=== PATIENT | female | born 1955 | race Caucasian/White ===

== ENCOUNTER → 2017-09-04 | Outpatient (CLI) | payer BC ==
--- NOTE | 2017-09-04 10:04 | REPMRS ---
Patient History The patient states she had a clinical breast exam in 08/2017. Patient has history of other cancer at age 49. Family history of breast cancer in paternal grandmother at age 50 or over, breast cancer in maternal cousin at age 58, and prostate cancer in brother at age 50 or over. Digital Woman Screen Mammo: September 04, 2017 - Exam #: [id number] Bilateral CC and MLO view(s) were taken. Technologist: Diane Rachel, Technologist Prior study comparison: September 05, 2016, digital woman screen mammo performed at [facility]. August 26, 2015, digital woman screen mammo performed at [facility]. FINDINGS: The breast tissue is heterogeneously dense. This may lower the sensitivity of mammography. There has been no change in the appearance of the mammogram from the prior studies. There is a moderate amount of residual fibroglandular tissue which is fairly symmetric. There is no interval development of dominant mass, areas of architectural distortion, or clustered microcalcification typical of malignancy. ASSESSMENT: BI-RADS/ACR category 1 mammogram. Negative. Recommendation Routine screening mammogram in 1 year (for women over age 40). This mammogram was interpreted with the aid of an FDA-approved computer-aided dectection system. Electronically Signed By: Sohail Whiting MD 09/04/17 5920
== END ==
LOC: M WHC 08:07
PROVIDERS: ATTEND Nurse Practitioner Women's Health
DX: Z12.31 Encounter for screening mammogram for malignant neoplasm of breast (principal)

== ENCOUNTER → 2018-03-16 | Outpatient (CLI) | payer BC ==
[2018-03-16 08:36] LABS: HEMATOCRIT 34.9 % (36.0-47.0); HEMOGLOBIN 11.8 g/dl (12.0-15.5); MEAN CORPUSCULAR HEMOGLOBIN 30.8 pg (27.0-33.0); MEAN CORPUSCULAR HGB CONC 33.8 g/dl (32.0-36.5); MEAN CORPUSCULAR VOLUME 91.1 fl (80.0-96.0); PLATELET COUNT, AUTOMATED 250 10^3/uL (150-450); RED BLOOD COUNT 3.83 10^6/uL (4.00-5.40); RED CELL DISTRIBUTION WIDTH 12.3 % (11.5-14.5); WHITE BLOOD COUNT 4.4 10^3/uL (4.0-10.0)
[2018-03-16 09:01] LABS: ALBUMIN/GLOBULIN RATIO 1.18 (1.00-1.93); ALKALINE PHOSPHATASE 89 U/L (45-117); ALT/SGPT 30 U/L (12-78); ANION GAP 5 MEQ/L (8-16); AST/SGOT 19 U/L (7-37); BILIRUBIN,TOTAL 0.5 MG/DL (0.2-1.0); BLOOD UREA NITROGEN 16 MG/DL (7-18); CALCIUM LEVEL 8.6 MG/DL (8.8-10.2); CARBON DIOXIDE LEVEL 28 MEQ/L (21-32); CHLORIDE LEVEL 112 MEQ/L (98-107); CHOLESTEROL LEVEL 205 MG/DL (<200); CHOLESTEROL RISK RATIO 2.971 (<5); CREATININE FOR GFR 0.66 MG/DL (0.55-1.30); GLOMERULAR FILTRATION RATE > 60.0 (>45); GLUCOSE, FASTING 85 MG/DL (70-100); HDL CHOLESTEROL 69 MG/DL (>40); IRON (FE) 91 UG/DL (50-170); LDL CHOLESTEROL 128.6 MG/DL (<100); NON-HDL-C 136 MG/DL; PERCENT SATURATION 27.1 % (13.2-45.0); POTASSIUM SERUM 3.8 MEQ/L (3.5-5.1); SODIUM LEVEL 145 MEQ/L (136-145); TOTAL IRON BINDING CAPACITY 336 UG/DL (250-450); TOTAL PROTEIN 7.4 GM/DL (6.4-8.2); TRIGLYCERIDES LEVEL 37 MG/DL (<150)
[2018-03-17 10:33] LABS: TOTAL 25(OH) VITAMIN D 22.2 NG/ML (30.0-100.0)
[2018-03-17 10:37] LABS: VITAMIN B12 LEVEL 663 PG/ML (247-911)
== END ==
LOC: M LAB 07:53
DX: D64.9 Anemia, unspecified (principal); R53.83 Other fatigue; E03.9 Hypothyroidism, unspecified
CPT/HCPCS: 83550

== ENCOUNTER → 2019-01-01 | Outpatient (REF) | payer BC | LOC: M SFHCLERA 09:59 | PROVIDERS: ATTEND Dermatology | DX: C44.712 Basal cell carcinoma of skin of right lower limb, including hip (principal) ==

== ENCOUNTER → 2019-04-14 | Outpatient (CLI) | payer BC ==
[2019-04-14 09:57] LABS: HEMATOCRIT 35.8 % (36.0-47.0); HEMOGLOBIN 11.8 g/dl (12.0-15.5); MEAN CORPUSCULAR HEMOGLOBIN 30.3 pg (27.0-33.0); MEAN CORPUSCULAR VOLUME 91.8 fl (80.0-96.0); PLATELET COUNT, AUTOMATED 260 10^3/uL (150-450); WHITE BLOOD COUNT 4.7 10^3/uL (4.0-10.0)
[2019-04-14 10:32] LABS: ALT/SGPT 29 U/L (12-78); BILIRUBIN,TOTAL 0.6 MG/DL (0.2-1.0); BLOOD UREA NITROGEN 15 MG/DL (7-18); CALCIUM LEVEL 9.1 MG/DL (8.8-10.2); CARBON DIOXIDE LEVEL 30 MEQ/L (21-32); CHLORIDE LEVEL 109 MEQ/L (98-107); CHOLESTEROL LEVEL 182 MG/DL (<200); CHOLESTEROL RISK RATIO 3.192 (<5); CREATININE FOR GFR 0.72 MG/DL (0.55-1.30); GLOMERULAR FILTRATION RATE > 60.0 (>45); GLUCOSE, FASTING 86 MG/DL (70-100); HDL CHOLESTEROL 57 MG/DL (>40); IRON (FE) 128 UG/DL (50-170); LDL CHOLESTEROL 108 MG/DL (<100); NON-HDL-C 125 MG/DL; POTASSIUM SERUM 4.1 MEQ/L (3.5-5.1); SODIUM LEVEL 143 MEQ/L (136-145); TOTAL IRON BINDING CAPACITY 346 UG/DL (250-450); TOTAL PROTEIN 7.5 GM/DL (6.4-8.2); TRIGLYCERIDES LEVEL 84 MG/DL (<150)
[2019-04-14 11:33] LABS: HEMOGLOBIN A1c 5.5 %
[2019-04-14 14:12] LABS: TOTAL 25(OH) VITAMIN D 23.5 NG/ML (30.0-100.0); VITAMIN B12 LEVEL 668 PG/ML (247-911)
== END ==
LOC: M LAB 09:19
PROVIDERS: ATTEND Family Medicine
DX: D64.9 Anemia, unspecified (principal); R53.83 Other fatigue; E03.9 Hypothyroidism, unspecified

== ENCOUNTER → 2019-09-22 | Outpatient (REF) | payer BC | LOC: M LAB REF 19:13 | PROVIDERS: ATTEND Dermatology | DX: D22.5 Melanocytic nevi of trunk (principal) ==

== ENCOUNTER → 2019-11-30 | Outpatient (CLI) | payer BC, SELFPAY ==
--- NOTE | 2019-11-30 10:29 | REPMRS ---
Patient History The patient states she has not had a clinical breast exam in over a year. Family history of prostate cancer at age 50 or over in brother, breast cancer at age 50 or over in paternal grandmother, breast cancer at age 58 in maternal cousin. Digital Woman Screen Mammo: November 30, 2019 - Exam #: [id number] Bilateral CC and MLO view(s) were taken. Technologist: Salud Flowers, Technologist Prior study comparison: October 16, 2018, bilateral digital woman screen mammo performed at [facility]. September 04, 2017, digital woman screen mammo performed at [facility]. September 05, 2016, digital woman screen mammo performed at [facility]. FINDINGS: The breast tissue is heterogeneously dense. This may lower the sensitivity of mammography. There is a moderate amount of heterogeneously dense fibroglandular tissue which is fairly symmetric. There is no interval development of dominant mass, architectural distortion, or grouped microcalcification typical of malignancy. There has been no change in the appearance of the mammogram from the prior studies. 3-D tomosynthesis shows no additional findings. Assessment: BI-RADS/ACR category 1 mammogram. Negative Mammogram. Recommendation Routine screening mammogram of both breasts in 1 year (for women over age 40). This patient's Lifetime Breast Cancer RIsk is estimated at 9.4 %. This mammogram was interpreted with the aid of an FDA-approved computer-aided dectection system. Electronically Signed By: Ifeanyi Goodman MD 11/30/19 [id number]
== END ==
LOC: M WHC 08:48
PROVIDERS: ATTEND Nurse Practitioner Women's Health
DX: Z12.31 Encounter for screening mammogram for malignant neoplasm of breast (principal); Z80.42 Family history of malignant neoplasm of prostate; Z80.3 Family history of malignant neoplasm of breast

== ENCOUNTER → 2020-07-30 | Outpatient (CLI) | payer MEDICARE ==
[2020-07-30 13:26] LABS: HEMATOCRIT 35.5 % (36.0-47.0); HEMOGLOBIN 11.6 g/dl (12.0-15.5); MEAN CORPUSCULAR HEMOGLOBIN 30.3 pg (27.0-33.0); MEAN CORPUSCULAR HGB CONC 32.7 g/dl (32.0-36.5); MEAN CORPUSCULAR VOLUME 92.7 fl (80.0-96.0); PLATELET COUNT, AUTOMATED 252 10^3/uL (150-450); RED BLOOD COUNT 3.83 10^6/uL (4.00-5.40); WHITE BLOOD COUNT 4.8 10^3/uL (4.0-10.0)
[2020-07-30 13:43] LABS: HEMOGLOBIN A1c 5.3 %
[2020-07-30 13:56] LABS: ALBUMIN 3.9 GM/DL (3.2-5.2); ALT/SGPT 25 U/L (12-78); BILIRUBIN,TOTAL 0.6 MG/DL (0.2-1.0); BLOOD UREA NITROGEN 14 MG/DL (7-18); CALCIUM LEVEL 8.8 MG/DL (8.8-10.2); CARBON DIOXIDE LEVEL 29 MEQ/L (21-32); CHLORIDE LEVEL 109 MEQ/L (98-107); CHOLESTEROL LEVEL 217 MG/DL (<200); CHOLESTEROL RISK RATIO 3.557 (<5); CREATININE FOR GFR 0.61 MG/DL (0.55-1.30); GLOMERULAR FILTRATION RATE > 60.0 (>45); GLUCOSE, FASTING 83 MG/DL (70-100); HDL CHOLESTEROL 61 MG/DL (>40); IRON (FE) 91 UG/DL (50-170); LDL CHOLESTEROL 145 MG/DL (<100); NON-HDL-C 156 MG/DL; PERCENT SATURATION 27.5 % (13.2-45.0); SODIUM LEVEL 141 MEQ/L (136-145); TOTAL IRON BINDING CAPACITY 331 UG/DL (250-450); TOTAL PROTEIN 7.4 GM/DL (6.4-8.2); TRIGLYCERIDES LEVEL 57 MG/DL (<150)
[2020-08-01 11:34] LABS: TOTAL 25(OH) VITAMIN D 29.1 NG/ML (30.0-100.0); VITAMIN B12 LEVEL 422 PG/ML (247-911)
== END ==
LOC: M WUC 09:16
PROVIDERS: ATTEND Family Medicine
DX: D64.9 Anemia, unspecified (principal); I10 Essential (primary) hypertension; R53.83 Other fatigue; E03.9 Hypothyroidism, unspecified; Z79.899 Other long term (current) drug therapy

== ENCOUNTER → 2020-11-08 | Outpatient (CLI) | payer MEDICARE ==
[2020-11-08 11:32] LABS: HEMATOCRIT 37.6 % (36.0-47.0); HEMOGLOBIN 12.6 g/dl (12.0-15.5); MEAN CORPUSCULAR HGB CONC 33.5 g/dl (32.0-36.5); MEAN CORPUSCULAR VOLUME 92.6 fl (80.0-96.0); PLATELET COUNT, AUTOMATED 260 10^3/uL (150-450); RED BLOOD COUNT 4.06 10^6/uL (4.00-5.40)
--- NOTE | 2020-11-08 11:35 | REP ---
INDICATION: HTN, FATIGUE LAB 1ST, EKG 2ND AND XR 3RD. COMPARISON: Comparison chest x-ray February 02, 2014. TECHNIQUE: Two views.. FINDINGS: The lungs are somewhat hyperinflated but clear. Pleural angles are sharp. Heart is somewhat enlarged. Cardiothoracic ratio 53.3%. Pulmonary vasculature is not increased. Thoracic aorta is slightly tortuous. There are minimal degenerative changes in the thoracic spine. IMPRESSION: Mild cardiomegaly. Hyperinflation. Otherwise no acute disease.. <Electronically signed by Ifeanyi Goodman > 11/08/20 2308
[2020-11-08 12:17] LABS: ALBUMIN 4.1 GM/DL (3.2-5.2); ALT/SGPT 36 U/L (12-78); BILIRUBIN,TOTAL 0.6 MG/DL (0.2-1.0); BLOOD UREA NITROGEN 15 MG/DL (7-18); CALCIUM LEVEL 9.8 MG/DL (8.8-10.2); CARBON DIOXIDE LEVEL 31 MEQ/L (21-32); CHLORIDE LEVEL 106 MEQ/L (98-107); CHOLESTEROL LEVEL 218 MG/DL (<200); CHOLESTEROL RISK RATIO 3.303 (<5); CREATININE FOR GFR 0.68 MG/DL (0.55-1.30); GLOMERULAR FILTRATION RATE > 60.0 (>45); GLUCOSE, FASTING 91 MG/DL (70-100); HDL CHOLESTEROL 66 MG/DL (>40); LDL CHOLESTEROL 143 MG/DL (<100); NON-HDL-C 152 MG/DL; POTASSIUM SERUM 3.8 MEQ/L (3.5-5.1); SODIUM LEVEL 141 MEQ/L (136-145); TOTAL PROTEIN 7.8 GM/DL (6.4-8.2); TRIGLYCERIDES LEVEL 44 MG/DL (<150)
--- NOTE | 2020-11-08 16:15 | ECGEPIP ---
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 No prior tracing for comparison Electronically Signed on 11-08-2020 16:15:38 EST by Benjamin uGzman
== END ==
LOC: M LAB 10:18
PROVIDERS: ATTEND Family Medicine
DX: I10 Essential (primary) hypertension (principal); R53.83 Other fatigue

== ENCOUNTER → 2021-01-09 | Outpatient (CLI) | payer MEDICARE ==
--- NOTE | 2021-01-09 07:52 | REP ---
INDICATION: OTH SYMPTOMS AND SIGNS INVOLVING THE CIRC AND RESP COMPARISON: None. TECHNIQUE: Real-time ultrasound evaluation and duplex Doppler interrogation of the extracranial carotid vasculature is performed. FINDINGS: Antegrade flow is observed in both vertebral arteries. Right carotid: The right common carotid artery shows diffuse intimal thickening but is otherwise unremarkable. There minimal mixed plaquing in the right carotid bulb and proximal ICA on two-dimensional scanning. Color flow and spectral Doppler interrogation are unremarkable on the right. Velocity chart right carotid: Right CCA PSV: 94 cm/S Right ICA PSV: 73 cm/S Right ICA EDV: 28 cm/S Right ECA PSV: 75 cm/S Right ICA/CCA ratio: 0.77 Left carotid: The left common carotid artery shows diffuse intimal thickening but is otherwise unremarkable. There is minimal mixed plaquing in the left carotid bulb and proximal ICA on two-dimensional scanning. Color flow and spectral Doppler interrogation are unremarkable on the left. Velocity chart left carotid: Left CCA PSV: 84 cm/S Left ICA PSV: 76 cm/S Left ICA EDV: 26 cm/S Left ECA PSV: 66 cm/S Left ICA/CCA ratio: 0.91 IMPRESSION: Less than 50% category narrowing in the right internal carotid artery by Doppler velocity criteria. Less than 50% category narrowing in the left ICA by Doppler velocity criteria. <Electronically signed by Ifeanyi Goodman > 01/09/21 0797
== END ==
LOC: M RAD 06:18
PROVIDERS: ATTEND Internal Medicine Cardiovascular Disease
DX: R09.89 Other specified symptoms and signs involving the circulatory and respiratory systems (principal)

== ENCOUNTER → 2021-11-06 | Outpatient (CLI) | payer MEDICARE ==
[2021-11-06 12:57] LABS: APPEARANCE, URINE CLEAR (CLEAR); BACTERIA, URINE AUTO NEGATIVE (NEGATIVE); BILIRUBIN, URINE AUTO NEGATIVE (NEGATIVE); BLOOD, URINE BLOOD NEGATIVE (NEGATIVE); COLOR, URINE YELLOW (YELLOW); GLUCOSE, URINE (UA) AUTO NEGATIVE (NEGATIVE); KETONE, URINE AUTO NEGATIVE (NEGATIVE); LEUKOCYTE ESTERASE, URINE AUTO NEGATIVE (NEGATIVE); MUCUS, URINE SMALL (NEGATIVE); NITRITE, URINE AUTO NEGATIVE (NEGATIVE); PROTEIN, URINE AUTO NEGATIVE (NEGATIVE); RBC, URINE AUTO 0 /HPF (0-3); SPECIFIC GRAVITY URINE AUTO 1.008 (1.002-1.035); SQUAMOUS EPITHELIAL CELL UR AU 0 /HPF (0-6); UROBILINOGEN, URINE AUTO 0.2 mg/dL (0.0-2.0); WBC, URINE AUTO 2 /HPF (0-3)
[2021-11-06 13:33] LABS: ALBUMIN 4.1 GM/DL (3.2-5.2); BLOOD UREA NITROGEN 19 MG/DL (7-18); CALCIUM LEVEL 9.5 MG/DL (8.8-10.2); CARBON DIOXIDE LEVEL 29 MEQ/L (21-32); CHLORIDE LEVEL 107 MEQ/L (98-107); CREATININE FOR GFR 0.71 MG/DL (0.55-1.30); GLOMERULAR FILTRATION RATE > 60.0 (>45); GLUCOSE, FASTING 82 MG/DL (70-100); PHOSPHORUS LEVEL 3.7 MG/DL (2.5-4.9); POTASSIUM SERUM 4.5 MEQ/L (3.5-5.1); SODIUM LEVEL 142 MEQ/L (136-145)
== END ==
LOC: M WUC 10:28
PROVIDERS: ATTEND Internal Medicine Cardiovascular Disease
DX: I10 Essential (primary) hypertension (principal); R07.9 Chest pain, unspecified

== ENCOUNTER 2021-12-26 06:37 | Emergency (ER) | payer MEDICARE ==
[~2021-12-26] VITALS: Ht 157.5 cm; Wt 54.1 kg
[2021-12-26] MEDS ORDERED: ATOR40TA75 (08:10)
[2021-12-26] MEDS ORDERED: SPIR-10 (08:10)
[2021-12-26] MEDS ORDERED: CARV6.25 (08:10)
[2021-12-26] MEDS ORDERED: LEVO50TA5 (08:10)
[2021-12-26 09:04] LABS: BASO # 0.1 10^3/uL (0.0-0.2); BASO % 0.8 % (0.0-1.0); EOS # 0.2 10^3/uL (0.0-0.5); EOS % 2.3 % (0.0-3.0); HEMATOCRIT 37.1 % (36.0-47.0); HEMOGLOBIN 12.5 g/dl (12.0-15.5); LYMPH # 1.1 10^3/uL (1.5-5.0); LYMPH % 14.3 % (24.0-44.0); MEAN CORPUSCULAR HGB CONC 33.7 g/dl (32.0-36.5); MEAN CORPUSCULAR VOLUME 92.1 fl (80.0-96.0); MONO # 0.4 10^3/uL (0.0-0.8); MONO % 4.9 % (2.0-8.0); NEUTROPHILS % 77.3 % (36.0-66.0); PLATELET COUNT, AUTOMATED 239 10^3/uL (150-450); RED BLOOD COUNT 4.03 10^6/uL (4.00-5.40); WHITE BLOOD COUNT 7.7 10^3/uL (4.0-10.0)
[2021-12-26 09:25] LABS: CK-MB VALUE MASS < 1.0 NG/ML (<3.6); CPK CREATINE PHOSPHOKINASE 121 U/L (26-192); MB/CK RELATIVE INDEX 0.83 (< OR =4)
[2021-12-26 09:56] LABS: BLOOD UREA NITROGEN 16 MG/DL (7-18); CALCIUM LEVEL 9.8 MG/DL (8.8-10.2); CARBON DIOXIDE LEVEL 30 MEQ/L (21-32); CHLORIDE LEVEL 109 MEQ/L (98-107); CREATININE FOR GFR 0.75 MG/DL (0.55-1.30); FREE T4 1.34 NG/DL (0.76-1.46); GLOMERULAR FILTRATION RATE > 60.0 (>45); GLUCOSE, FASTING 105 MG/DL (70-100); MAGNESIUM LEVEL 2.3 MG/DL (1.8-2.4); POTASSIUM SERUM 4.7 MEQ/L (3.5-5.1); SODIUM LEVEL 144 MEQ/L (136-145)
[2021-12-26] MEDS ORDERED: MECLIZINE 25 MG TABLET PO ONE (14:15)
[2021-12-26] MEDS ORDERED: MECL1TAB31 PO (14:28)
[2021-12-26 15:46] VITALS: BP 140/84
== END 2021-12-26 16:25 | disposition home or self-care (01) ==
LOC: M ED 06:37
DX: R42 Dizziness and giddiness (principal); I45.19 Other right bundle-branch block; E03.9 Hypothyroidism, unspecified; D50.9 Iron deficiency anemia, unspecified; Z88.0 Allergy status to penicillin

== ENCOUNTER → 2022-01-12 | Outpatient (CLI) | payer MEDICARE ==
[~2022-01-12] MED LIST: ATOR40TA75; CARV6.25; LEVO50TA5; MECL1TAB31 PO; SPIR-10
[2022-01-12 11:23] LABS: HEMATOCRIT 35.8 % (36.0-47.0); HEMOGLOBIN 12.2 g/dl (12.0-15.5); MEAN CORPUSCULAR HEMOGLOBIN 31.3 pg (27.0-33.0); MEAN CORPUSCULAR HGB CONC 34.1 g/dl (32.0-36.5); MEAN CORPUSCULAR VOLUME 91.8 fl (80.0-96.0); PLATELET COUNT, AUTOMATED 272 10^3/uL (150-450); WHITE BLOOD COUNT 7.6 10^3/uL (4.0-10.0)
[2022-01-12 12:05] LABS: ALBUMIN 4.2 GM/DL (3.2-5.2); ALT/SGPT 28 U/L (12-78); BLOOD UREA NITROGEN 15 MG/DL (7-18); CALCIUM LEVEL 9.4 MG/DL (8.8-10.2); CARBON DIOXIDE LEVEL 30 MEQ/L (21-32); CHLORIDE LEVEL 106 MEQ/L (98-107); CHOLESTEROL LEVEL 143 MG/DL (<200); CHOLESTEROL RISK RATIO 2.344 (<5); CREATININE FOR GFR 0.75 MG/DL (0.55-1.30); GLOMERULAR FILTRATION RATE > 60.0 (>45); GLUCOSE, FASTING 94 MG/DL (70-100); HDL CHOLESTEROL 61 MG/DL (>40); IRON (FE) 104 UG/DL (50-170); LDL CHOLESTEROL 73 MG/DL (<100); NON-HDL-C 82 MG/DL; PERCENT SATURATION 29.3 % (13.2-45.0); POTASSIUM SERUM 4.2 MEQ/L (3.5-5.1); SODIUM LEVEL 138 MEQ/L (136-145); THYROXINE (T4) 11.9 UG/DL (4.5-12.0); TOTAL IRON BINDING CAPACITY 355 UG/DL (250-450); TOTAL PROTEIN 7.6 GM/DL (6.4-8.2); TRIGLYCERIDES LEVEL 44 MG/DL (<150)
[2022-01-12 12:41] LABS: TOTAL 25(OH) VITAMIN D 26.1 NG/ML (30.0-100.0)
[2022-01-12 12:42] LABS: TOTAL T3 89.7 NG/DL (60.0-181.0); VITAMIN B12 LEVEL 753 PG/ML (247-911)
== END ==
LOC: M LAB 09:57
PROVIDERS: ATTEND Family Medicine
DX: D64.9 Anemia, unspecified (principal); R53.83 Other fatigue; E03.9 Hypothyroidism, unspecified

== ENCOUNTER → 2022-02-12 | Outpatient (CLI) | payer MEDICARE | LOC: M WUC 10:24 | PROVIDERS: ATTEND Physician Assistant | DX: J20.9 Acute bronchitis, unspecified (principal); R91.1 Solitary pulmonary nodule ==

== ENCOUNTER 2022-03-19 08:52 | Emergency (ER) | payer MEDICARE ==
[~2022-03-19] VITALS: Ht 157.5 cm; Wt 50.5 kg
[2022-03-19] MEDS ORDERED: CHLO125TA (09:06)
[2022-03-19] MEDS ORDERED: PANTOPRAZOLE 40MG VIAL IV ONE (12:30)
[2022-03-19] MEDS ORDERED: ALBUTEROL 90 MCG/ACT 8GM HFA INHALER INH ONE (12:30)
[2022-03-19] MEDS ORDERED: SUCRALFATE 1 GM TAB PO ONE (12:30)
[2022-03-19] MEDS ORDERED: GI COCKTAIL 50ML BTL(HYOSCYAMINE/MAALOX/LIDOCAINE VISCOUS)(1:3:1) PO ONE (12:30)
[2022-03-19 12:48] LABS: BASO # 0.1 10^3/uL (0.0-0.2); BASO % 0.9 % (0.0-1.0); EOS % 0.5 % (0.0-3.0); HEMATOCRIT 38.8 % (36.0-47.0); HEMOGLOBIN 13.1 g/dl (12.0-15.5); LYMPH # 1.2 10^3/uL (1.5-5.0); LYMPH % 17.6 % (24.0-44.0); MEAN CORPUSCULAR HEMOGLOBIN 31.9 pg (27.0-33.0); MEAN CORPUSCULAR HGB CONC 33.8 g/dl (32.0-36.5); MEAN CORPUSCULAR VOLUME 94.4 fl (80.0-96.0); MONO # 0.4 10^3/uL (0.0-0.8); MONO % 6.4 % (2.0-8.0); NEUTROPHILS # 4.9 10^3/uL (1.5-8.5); NEUTROPHILS % 74.4 % (36.0-66.0); PLATELET COUNT, AUTOMATED 240 10^3/uL (150-450); RED BLOOD COUNT 4.11 10^6/uL (4.00-5.40); WHITE BLOOD COUNT 6.6 10^3/uL (4.0-10.0)
[2022-03-19 13:15] LABS: ALBUMIN 4.2 GM/DL (3.2-5.2); ALT/SGPT 32 U/L (12-78); BILIRUBIN,DIRECT 0.3 MG/DL (0.0-0.2); BLOOD UREA NITROGEN 12 MG/DL (7-18); CALCIUM LEVEL 9.5 MG/DL (8.8-10.2); CARBON DIOXIDE LEVEL 29 MEQ/L (21-32); CHLORIDE LEVEL 104 MEQ/L (98-107); CREATININE FOR GFR 0.91 MG/DL (0.55-1.30); GLOMERULAR FILTRATION RATE > 60.0 (>45); GLUCOSE, FASTING 93 MG/DL (70-100); LIPASE 110 U/L (73-393); SODIUM LEVEL 138 MEQ/L (136-145); TOTAL PROTEIN 7.6 GM/DL (6.4-8.2)
[2022-03-19 13:24] LABS: CK-MB VALUE MASS 1.2 NG/ML (<3.6); MB/CK RELATIVE INDEX 1.05 (< OR =4)
[2022-03-19 13:29] LABS: INR 1.02; PROTHROMBIN TIME 13.8 SECONDS (12.7-14.5)
[2022-03-19 13:30] LABS: PARTIAL THROMBOPLASTIN TIME 28.1 SECONDS (25.9-37.0)
[2022-03-19 13:32] LABS: D-DIMER QUANT 460.49 ng/ml (<500)
[2022-03-19] MEDS ORDERED: ISOVUE-370 76% 100ML VIAL As Ordered ONE (14:02)
[2022-03-19] MEDS ORDERED: OMEP40CA4 PO (14:55)
[2022-03-19] MEDS ORDERED: BENZ200C70 PO (14:55)
[2022-03-19] MEDS ORDERED: CARA1TAB6 PO (14:55)
[2022-03-19] MEDS ORDERED: PROAAER10 INH (14:55)
[2022-03-19 15:03] VITALS: BP 145/79
== END 2022-03-19 15:05 | disposition home or self-care (01) ==
LOC: M ED 08:52
DX: R06.02 Shortness of breath (principal); R53.83 Other fatigue; R10.13 Epigastric pain; I45.19 Other right bundle-branch block; I10 Essential (primary) hypertension; E78.5 Hyperlipidemia, unspecified; E03.9 Hypothyroidism, unspecified; Z85.828 Personal history of other malignant neoplasm of skin; R91.8 Other nonspecific abnormal finding of lung field; Z79.890 Hormone replacement therapy; Z79.899 Other long term (current) drug therapy; Z88.0 Allergy status to penicillin; Z88.1 Allergy status to other antibiotic agents
CPT/HCPCS: 71046; 71275; 80048; 80076; 82550; 82553; 83690; 84484; 85025; 85379; 85610; 85730; 87486; 87581; 87633; 87798; 93005; 94640; 96374; 99284; C9113; Q9967

== ENCOUNTER → 2022-05-08 | Outpatient (CLI) | payer MEDICARE ==
[~2022-05-08] MED LIST changes: +BENZ200C70 PO; +CARA1TAB6 PO; +CHLO125TA; +E-Z-GAS II EFFERVESCENT PACKET (SODIUM BICARB./CITRIC ACID/SIMETHICONE) As Ordered ONE; +E-Z-HD 98% w/w 340GM SUSP BTL As Ordered ONE; +E-Z-PAQUE 96% w/w SUSP 176GM BTL As Ordered ONE; +OMEP40CA4 PO; +PROAAER10 INH
== END ==
LOC: M RAD 07:54
PROVIDERS: ATTEND Family Medicine
DX: K27.9 Peptic ulcer, site unspecified, unspecified as acute or chronic, without hemorrhage or perforation (principal); R10.9 Unspecified abdominal pain; K21.9 Gastro-esophageal reflux disease without esophagitis

== ENCOUNTER → 2022-05-11 | Outpatient (REF) | payer BC, MEDICARE ==
[~2022-05-11] MED LIST changes: -E-Z-GAS II EFFERVESCENT PACKET (SODIUM BICARB./CITRIC ACID/SIMETHICONE) As Ordered ONE; -E-Z-HD 98% w/w 340GM SUSP BTL As Ordered ONE; -E-Z-PAQUE 96% w/w SUSP 176GM BTL As Ordered ONE
== END ==
LOC: M SFHCDERM 16:57
PROVIDERS: ATTEND Nurse Practitioner Family
DX: C44.612 Basal cell carcinoma of skin of right upper limb, including shoulder (principal)

== ENCOUNTER → 2022-05-15 | Outpatient (CLI) | payer MEDICARE ==
[2022-05-15 10:44] LABS: HEMATOCRIT 35.1 % (36.0-47.0); HEMOGLOBIN 11.6 g/dl (12.0-15.5); MEAN CORPUSCULAR VOLUME 93.9 fl (80.0-96.0); PLATELET COUNT, AUTOMATED 223 10^3/uL (150-450); RED BLOOD COUNT 3.74 10^6/uL (4.00-5.40); WHITE BLOOD COUNT 5.8 10^3/uL (4.0-10.0)
[2022-05-15 12:20] LABS: ALBUMIN 3.8 GM/DL (3.2-5.2); ALT/SGPT 48 U/L (12-78); BILIRUBIN,TOTAL 0.6 MG/DL (0.2-1.0); BLOOD UREA NITROGEN 20 MG/DL (7-18); CALCIUM LEVEL 9.4 MG/DL (8.8-10.2); CARBON DIOXIDE LEVEL 30 MEQ/L (21-32); CHLORIDE LEVEL 108 MEQ/L (98-107); CHOLESTEROL LEVEL 135 MG/DL (<200); CHOLESTEROL RISK RATIO 2.076 (<5); CREATININE FOR GFR 0.65 MG/DL (0.55-1.30); GLOMERULAR FILTRATION RATE > 60.0 (>45); GLUCOSE, FASTING 87 MG/DL (70-100); HDL CHOLESTEROL 65 MG/DL (>40); IRON (FE) 90 UG/DL (50-170); LDL CHOLESTEROL 64 MG/DL (<100); NON-HDL-C 70 MG/DL; PERCENT SATURATION 25.5 % (13.2-45.0); POTASSIUM SERUM 4.2 MEQ/L (3.5-5.1); SODIUM LEVEL 141 MEQ/L (136-145); TOTAL IRON BINDING CAPACITY 353 UG/DL (250-450); TOTAL PROTEIN 7.1 GM/DL (6.4-8.2); TRIGLYCERIDES LEVEL 30 MG/DL (<150)
[2022-05-15 12:49] LABS: TOTAL 25(OH) VITAMIN D 74.8 NG/ML (30.0-100.0); VITAMIN B12 LEVEL 444 PG/ML (247-911)
[2022-05-15 15:29] LABS: HEMOGLOBIN A1c 5.3 %
== END ==
LOC: M LAB 10:07
PROVIDERS: ATTEND Family Medicine
DX: I10 Essential (primary) hypertension (principal); R53.83 Other fatigue; E03.9 Hypothyroidism, unspecified

== ENCOUNTER → 2022-06-27 | Outpatient (REF) | payer MEDICARE | LOC: M LAB REF 12:15 | PROVIDERS: ATTEND Surgery | DX: C44.611 Basal cell carcinoma of skin of unspecified upper limb, including shoulder (principal) ==

== ENCOUNTER → 2022-07-10 | Outpatient (CLI) | payer MEDICARE | LOC: M PLAIMG 10:50 | PROVIDERS: ATTEND Internal Medicine Pulmonary Disease | DX: R91.8 Other nonspecific abnormal finding of lung field (principal) ==

== ENCOUNTER → 2022-08-17 | Outpatient (REF) | payer MEDICARE | LOC: M SFHCDERM 17:39 | PROVIDERS: ATTEND Nurse Practitioner Family | DX: C44.519 Basal cell carcinoma of skin of other part of trunk (principal) ==

== ENCOUNTER → 2022-09-19 | Outpatient (REF) | payer MEDICARE | LOC: M LAB REF 15:37 | PROVIDERS: ATTEND Surgery | DX: C44.519 Basal cell carcinoma of skin of other part of trunk (principal) ==

== ENCOUNTER → 2023-01-01 | Outpatient (CLI) | payer MEDICARE | LOC: M WUC 09:40 | PROVIDERS: ATTEND Family Medicine | DX: R91.8 Other nonspecific abnormal finding of lung field (principal) ==

== ENCOUNTER → 2023-01-04 | Outpatient (CLI) | payer MEDICARE | LOC: M WHC 08:37 | PROVIDERS: ATTEND Family Medicine | DX: Z12.31 Encounter for screening mammogram for malignant neoplasm of breast (principal) ==

== ENCOUNTER → 2023-02-06 | Outpatient (CLI) | payer MEDICARE ==
[2023-02-06 15:24] LABS: HEMATOCRIT 35.2 % (36.0-47.0); HEMOGLOBIN 11.4 g/dl (12.0-15.5); MEAN CORPUSCULAR HEMOGLOBIN 30.9 pg (27.0-33.0); MEAN CORPUSCULAR HGB CONC 32.4 g/dl (32.0-36.5); MEAN CORPUSCULAR VOLUME 95.4 fl (80.0-96.0); PLATELET COUNT, AUTOMATED 238 10^3/uL (150-450); RED BLOOD COUNT 3.69 10^6/uL (4.00-5.40); WHITE BLOOD COUNT 5.6 10^3/uL (4.0-10.0)
[2023-02-06 15:30] LABS: ALBUMIN 3.9 G/DL (3.2-5.2); ALKALINE PHOSPHATASE 97 U/L (46-116); ALT/SGPT 31 U/L (7.0-40); AST/SGOT 25 U/L (<34); BILIRUBIN,TOTAL 0.6 MG/DL (0.3-1.2); BLOOD UREA NITROGEN 16 MG/DL (9-23); CALCIUM LEVEL 8.8 MG/DL (8.3-10.6); CARBON DIOXIDE LEVEL 29 MMOL/L (20-31); CHLORIDE LEVEL 109 MMOL/L (98-107); CHOLESTEROL LEVEL 131 MG/DL (<200); CHOLESTEROL RISK RATIO 2.27 (<5); CREATININE FOR GFR 0.72 MG/DL (0.55-1.30); GLOMERULAR FILTRATION RATE > 60.0 (>45); GLUCOSE, FASTING 89 MG/DL (74-106); HDL CHOLESTEROL 57.7 MG/DL (>40); LDL CHOLESTEROL 66.1 MG/DL (<100); NON-HDL-C 73.3 MG/DL; SODIUM LEVEL 143 MMOL/L (136-145); TOTAL PROTEIN 6.8 G/DL (5.7-8.2); TRIGLYCERIDES LEVEL 36 MG/DL (<150)
[2023-02-06 15:31] LABS: THYROID STIMULATING HORMONE 0.922 uIU/ML (0.55-4.78); TOTAL 25(OH) VITAMIN D 116.7 NG/ML (20.0-100.0)
[2023-02-06 16:52] LABS: HEMOGLOBIN A1c 5.3 % (4.0-6.0)
== END ==
LOC: M WUC 08:42
PROVIDERS: ATTEND Family Medicine
DX: I10 Essential (primary) hypertension (principal); R53.83 Other fatigue; E03.9 Hypothyroidism, unspecified

== ENCOUNTER → 2023-02-12 | Outpatient (CLI) | payer MEDICARE | LOC: M PLAIMG 08:50 | PROVIDERS: ATTEND Internal Medicine Pulmonary Disease | DX: R91.8 Other nonspecific abnormal finding of lung field (principal) ==

== ENCOUNTER → 2023-02-22 | Outpatient (CLI) | payer MEDICARE ==
[2023-02-22 11:45] LABS: BASO # 0.1 10^3/uL (0.0-0.2); BASO % 1.2 % (0.0-1.0); EOS # 0.2 10^3/uL (0.0-0.5); HEMOGLOBIN 12.2 g/dl (12.0-15.5); LYMPH # 1.6 10^3/uL (1.5-5.0); LYMPH % 26.1 % (24.0-44.0); MEAN CORPUSCULAR HEMOGLOBIN 31.6 pg (27.0-33.0); MEAN CORPUSCULAR HGB CONC 33.9 g/dl (32.0-36.5); MEAN CORPUSCULAR VOLUME 93.3 fl (80.0-96.0); MONO # 0.5 10^3/uL (0.0-0.8); MONO % 7.9 % (2.0-8.0); NEUTROPHILS # 3.7 10^3/uL (1.5-8.5); NEUTROPHILS % 61.5 % (36.0-66.0); PLATELET COUNT, AUTOMATED 256 10^3/uL (150-450); RED BLOOD COUNT 3.86 10^6/uL (4.00-5.40)
[2023-02-22 12:00] LABS: PERCENT SATURATION 27.8 % (13.2-45.0)
== END ==
LOC: M LAB 10:50
PROVIDERS: ATTEND Internal Medicine Cardiovascular Disease
DX: D64.9 Anemia, unspecified (principal)

== ENCOUNTER → 2023-03-26 | Outpatient (CLI) | payer MEDICARE | LOC: M RAD 07:30 | PROVIDERS: ATTEND Family Medicine | DX: R19.01 Right upper quadrant abdominal swelling, mass and lump (principal) ==

== ENCOUNTER → 2023-04-08 | Outpatient (CLI) | payer MEDICARE | LOC: M WUC 09:15 | PROVIDERS: ATTEND Student in an Organized Health Care Education/Training Program | DX: S20.211A Contusion of right front wall of thorax, initial encounter (principal); J84.9 Interstitial pulmonary disease, unspecified; X58.XXXA Exposure to other specified factors, initial encounter; Y92.9 Unspecified place or not applicable; Y93.9 Activity, unspecified; Y99.9 Unspecified external cause status ==

== ENCOUNTER → 2023-05-28 | Outpatient (CLI) | payer MEDICARE | LOC: M RAD 10:06 | PROVIDERS: ATTEND Family Medicine | DX: M16.12 Unilateral primary osteoarthritis, left hip (principal); M54.30 Sciatica, unspecified side; M43.07 Spondylolysis, lumbosacral region ==

== ENCOUNTER 2023-08-11 03:26 | Emergency (ER) | payer MEDICARE ==
[~2023-08-11] VITALS: Ht 157.5 cm; Wt 67.0 kg
[~2023-08-11 03:26] MED LIST changes: -ATOR40TA75; +ATOR40TA75 PO; +ELDE350C PO; +MECL-209 PO; -MECL1TAB31 PO; +METO25TA4 PO; +PRED10PA2 PO; +PROA1AER2 INH
[2023-08-11] MEDS ORDERED: ACETAMINOPHEN TAB 650MG DOSE (2X325MG) PO ONE (05:55)
[2023-08-11 07:01] LABS: BASO # 0.1 10^3/uL (0.0-0.2); BASO % 0.7 % (0.0-1.0); HEMATOCRIT 37.6 % (36.0-47.0); HEMOGLOBIN 12.9 g/dl (12.0-15.5); LYMPH # 0.6 10^3/uL (1.5-5.0); LYMPH % 7.3 % (24.0-44.0); MEAN CORPUSCULAR HEMOGLOBIN 31.5 pg (27.0-33.0); MEAN CORPUSCULAR HGB CONC 34.3 g/dl (32.0-36.5); MEAN CORPUSCULAR VOLUME 91.9 fl (80.0-96.0); MONO # 0.5 10^3/uL (0.0-0.8); MONO % 6.5 % (2.0-8.0); NEUTROPHILS # 6.5 10^3/uL (1.5-8.5); NEUTROPHILS % 85.1 % (36.0-66.0); PLATELET COUNT, AUTOMATED 233 10^3/uL (150-450); RED BLOOD COUNT 4.09 10^6/uL (4.00-5.40); WHITE BLOOD COUNT 7.7 10^3/uL (4.0-10.0)
[2023-08-11 07:23] LABS: BLOOD UREA NITROGEN 11 MG/DL (9-23); CALCIUM LEVEL 8.9 MG/DL (8.3-10.6); CARBON DIOXIDE LEVEL 26 MMOL/L (20-31); CHLORIDE LEVEL 102 MMOL/L (98-107); CREATININE FOR GFR 0.63 MG/DL (0.55-1.30); GLOMERULAR FILTRATION RATE > 60.0 (>45); GLUCOSE, FASTING 108 MG/DL (74-106); MAGNESIUM LEVEL 1.9 MG/DL (1.8-2.4); POTASSIUM SERUM 3.7 MMOL/L (3.5-5.1); SODIUM LEVEL 139 MMOL/L (136-145)
[2023-08-11] MEDS ORDERED: ISOVUE-370 76% 100ML VIAL As Ordered ONE (07:44)
[2023-08-11 08:33] VITALS: TEMP 100
[2023-08-11] MEDS ORDERED: AZITHROMYCIN 250MG TABLET PO ONE (09:00)
[2023-08-11] MEDS ORDERED: cefTRIAXone SOD 2 GM in D5W MINI-BAG PLUS 50 ML IV ONE (09:00)
[2023-08-11] MEDS ORDERED: MUCI600T31 PO (09:06)
[2023-08-11] MEDS ORDERED: ZITHTAB PO (09:06)
[2023-08-11] MEDS ORDERED: CEFD300C42 PO (09:06)
[2023-08-11 09:30] VITALS: BP 157/78
[2023-08-11 09:33] VITALS: O2SAT 96
== END 2023-08-11 09:50 | disposition home or self-care (01) ==
LOC: M ED 03:26
DX: J18.9 Pneumonia, unspecified organism (principal); I10 Essential (primary) hypertension; C44.90 Unspecified malignant neoplasm of skin, unspecified; J44.9 Chronic obstructive pulmonary disease, unspecified; E03.9 Hypothyroidism, unspecified
CPT/HCPCS: 71046; 71275; 80048; 83605; 83735; 85025; 87486; 87581; 87633; 87798; 96365; 99284; J0696; Q9967

== ENCOUNTER → 2023-10-11 | Outpatient (CLI) | payer MEDICARE ==
[~2023-10-11] MED LIST changes: +ATIV1TAB10 PO; +CEFD1CAP9 PO; +HYDR-3363 PO; +MUCI600T31 PO; +ZITHTAB PO
[2023-10-11 11:40] LABS: HEMATOCRIT 36.4 % (36.0-47.0); HEMOGLOBIN 12.2 g/dl (12.0-15.5); MEAN CORPUSCULAR HGB CONC 33.5 g/dl (32.0-36.5); MEAN CORPUSCULAR VOLUME 95.5 fl (80.0-96.0); PLATELET COUNT, AUTOMATED 237 10^3/uL (150-450); RED BLOOD COUNT 3.81 10^6/uL (4.00-5.40); WHITE BLOOD COUNT 6.3 10^3/uL (4.0-10.0)
[2023-10-11 11:59] LABS: IRON (FE) 128 UG/DL (50-170); PERCENT SATURATION 36.6 % (13.2-45.0); TOTAL IRON BINDING CAPACITY 350 UG/DL (250-425)
[2023-10-11 12:02] LABS: THYROXINE (T4) 9.6 UG/DL (4.5-10.9)
[2023-10-11 12:03] LABS: FOLLICLE STIMULATING HORMONE 71.5 mIU/ML
[2023-10-11 12:04] LABS: ESTRADIOL < 19.0 PG/ML; LUTEINIZING HORMONE 18.1 mIU/ML
[2023-10-11 12:05] LABS: MONO SCRN NEGATIVE (NEGATIVE); TOTAL 25(OH) VITAMIN D 105.6 NG/ML (20.0-100.0)
[2023-10-11 12:07] LABS: TOTAL T3 132.2 NG/DL (60.0-181.0)
[2023-10-11 12:13] LABS: ERYTHROCYTE SEDIMENTATION RATE 15 mm/hr (0-30)
== END ==
LOC: M LAB 09:25
PROVIDERS: ATTEND Family Medicine
DX: D64.9 Anemia, unspecified (principal); Z79.899 Other long term (current) drug therapy

== ENCOUNTER → 2024-01-02 | Outpatient (CLI) | payer MEDICARE ==
[2024-01-02 09:10] LABS: HEMATOCRIT 37.7 % (36.0-47.0); HEMOGLOBIN 12.6 g/dl (12.0-15.5); MEAN CORPUSCULAR HEMOGLOBIN 31.9 pg (27.0-33.0); MEAN CORPUSCULAR HGB CONC 33.4 g/dl (32.0-36.5); MEAN CORPUSCULAR VOLUME 95.4 fl (80.0-96.0); PLATELET COUNT, AUTOMATED 241 10^3/uL (150-450); RED BLOOD COUNT 3.95 10^6/uL (4.00-5.40); WHITE BLOOD COUNT 6.2 10^3/uL (4.0-10.0)
[2024-01-02 09:29] LABS: IRON (FE) 130 UG/DL (50-170); PERCENT SATURATION 41.8 % (13.2-45.0); TOTAL IRON BINDING CAPACITY 311 UG/DL (250-425)
[2024-01-02 09:30] LABS: ALBUMIN 3.9 G/DL (3.2-5.2); ALKALINE PHOSPHATASE 89 U/L (46-116); ALT/SGPT 16 U/L (7.0-40); AST/SGOT 14 U/L (<34); BILIRUBIN,TOTAL 0.7 MG/DL (0.3-1.2); BLOOD UREA NITROGEN 13 MG/DL (9-23); CALCIUM LEVEL 9.5 MG/DL (8.3-10.6); CARBON DIOXIDE LEVEL 30 MMOL/L (20-31); CHLORIDE LEVEL 109 MMOL/L (98-107); CHOLESTEROL LEVEL 166 MG/DL (<200); CREATININE FOR GFR 0.67 MG/DL (0.55-1.30); GLOMERULAR FILTRATION RATE > 60.0 (>45); GLUCOSE, FASTING 95 MG/DL (74-106); HDL CHOLESTEROL 53.4 MG/DL (>40); LDL CHOLESTEROL 98.4 MG/DL (<100); NON-HDL-C 112.6 MG/DL; POTASSIUM SERUM 4.6 MMOL/L (3.5-5.1); SODIUM LEVEL 141 MMOL/L (136-145); TOTAL 25(OH) VITAMIN D 50.6 NG/ML (20.0-100.0); TOTAL PROTEIN 6.7 G/DL (5.7-8.2); TRIGLYCERIDES LEVEL 71 MG/DL (<150); VITAMIN B12 LEVEL 1040 PG/ML (211-911)
[2024-01-02 09:31] LABS: THYROID STIMULATING HORMONE 1.093 uIU/ML (0.55-4.78)
[2024-01-02 10:04] LABS: HEMOGLOBIN A1c 5.3 % (4.0-6.0)
== END ==
LOC: M LAB 08:32
PROVIDERS: ATTEND Family Medicine
DX: I10 Essential (primary) hypertension (principal); D64.9 Anemia, unspecified; R53.83 Other fatigue; E03.9 Hypothyroidism, unspecified; Z79.899 Other long term (current) drug therapy

== ENCOUNTER → 2024-01-09 | Outpatient (CLI) | payer MEDICARE | LOC: M WUC 09:04 | PROVIDERS: ATTEND Family Medicine | DX: M16.12 Unilateral primary osteoarthritis, left hip (principal); M25.552 Pain in left hip ==

== ENCOUNTER → 2024-02-20 | Outpatient (CLI) | payer MEDICARE | LOC: M WHC 12:32 | PROVIDERS: ATTEND Family Medicine | DX: Z12.31 Encounter for screening mammogram for malignant neoplasm of breast (principal) ==

== ENCOUNTER → 2024-02-26 | Outpatient (CLI) | payer MEDICARE | LOC: M RAD 09:02 | PROVIDERS: ATTEND Family Medicine | DX: J44.9 Chronic obstructive pulmonary disease, unspecified (principal) ==

== ENCOUNTER → 2024-03-05 | Outpatient (REF) | payer MEDICARE | LOC: M LAB REF 12:13 | PROVIDERS: ATTEND Nurse Practitioner Family | DX: L03.031 Cellulitis of right toe (principal) ==

== ENCOUNTER → 2024-03-23 | Outpatient (CLI) | payer MEDICARE | LOC: M PLAIMG 08:57 | PROVIDERS: ATTEND Internal Medicine Pulmonary Disease | DX: R91.8 Other nonspecific abnormal finding of lung field (principal) ==

== ENCOUNTER → 2024-07-23 | Outpatient (CLI) | payer MEDICARE ==
[2024-07-23 07:25] LABS: HEMATOCRIT 36.4 % (36.0-47.0); HEMOGLOBIN 11.8 g/dl (12.0-15.5); MEAN CORPUSCULAR HEMOGLOBIN 31.3 pg (27.0-33.0); MEAN CORPUSCULAR HGB CONC 32.4 g/dl (32.0-36.5); MEAN CORPUSCULAR VOLUME 96.6 fl (80.0-96.0); PLATELET COUNT, AUTOMATED 231 10^3/uL (150-450); RED BLOOD COUNT 3.77 10^6/uL (4.00-5.40); WHITE BLOOD COUNT 6.6 10^3/uL (4.0-10.0)
[2024-07-23 07:57] LABS: ALBUMIN 3.8 G/DL (3.2-5.2); ALKALINE PHOSPHATASE 91 U/L (46-116); ALT/SGPT 24 U/L (7.0-40); AST/SGOT 15 U/L (<34); BILIRUBIN,TOTAL 0.9 MG/DL (0.3-1.2); BLOOD UREA NITROGEN 17 MG/DL (9-23); CALCIUM LEVEL 9.4 MG/DL (8.3-10.6); CARBON DIOXIDE LEVEL 32 MMOL/L (20-31); CHLORIDE LEVEL 108 MMOL/L (98-107); CHOLESTEROL LEVEL 187 MG/DL (<200); CREATININE FOR GFR 0.69 MG/DL (0.55-1.30); GLOMERULAR FILTRATION RATE > 60.0 (>45); GLUCOSE, FASTING 87 MG/DL (74-106); HDL CHOLESTEROL 74.8 MG/DL (>40); IRON (FE) 112 UG/DL (50-170); NON-HDL-C 112.2 MG/DL; PERCENT SATURATION 32.7 % (13.2-45.0); POTASSIUM SERUM 3.8 MMOL/L (3.5-5.1); SODIUM LEVEL 141 MMOL/L (136-145); TOTAL IRON BINDING CAPACITY 343 UG/DL (250-425); TOTAL PROTEIN 6.9 G/DL (5.7-8.2); TRIGLYCERIDES LEVEL 51 MG/DL (<150)
[2024-07-23 08:00] LABS: THYROXINE (T4) 9.3 UG/DL (4.5-10.9); TOTAL T3 93.9 NG/DL (60.0-181.0)
[2024-07-23 08:01] LABS: FOLLICLE STIMULATING HORMONE 60.9 mIU/ML; LUTEINIZING HORMONE 19.5 mIU/ML; THYROID STIMULATING HORMONE 2.691 uIU/ML (0.55-4.78)
[2024-07-23 08:02] LABS: ESTRADIOL 19.8 PG/ML
[2024-07-23 09:39] LABS: HEMOGLOBIN A1c 5.3 % (4.0-6.0)
== END ==
LOC: M LAB 07:04
PROVIDERS: ATTEND Family Medicine
DX: D64.9 Anemia, unspecified (principal); R53.83 Other fatigue; Z13.29 Encounter for screening for other suspected endocrine disorder; Z79.899 Other long term (current) drug therapy

== ENCOUNTER 2024-09-14 07:22 | Day surgery (SDC) | payer MEDICARE ==
[~2024-09-14] VITALS: Ht 157.5 cm; Wt 53.6 kg
[~2024-09-14 07:22] MED LIST changes: +CYAN500T14 PO
[2024-09-14] MEDS ORDERED: propofoL 200 MG/20 ML VIAL As Ordered ONE (08:06)
[2024-09-14] MEDS ORDERED: propofoL 500 MG/50 ML VIAL As Ordered ONE (08:11)
[2024-09-14 08:42] VITALS: TEMP 97.3
[2024-09-14 09:15] VITALS: BP 142/81; O2SAT 96
== END 2024-09-14 09:14 | disposition home or self-care (01) ==
LOC: M OPP 07:22
PROVIDERS: ATTEND Internal Medicine Gastroenterology
DX: Z12.11 Encounter for screening for malignant neoplasm of colon (principal); K64.0 First degree hemorrhoids; R12 Heartburn; K44.9 Diaphragmatic hernia without obstruction or gangrene; I10 Essential (primary) hypertension; E78.5 Hyperlipidemia, unspecified; E03.9 Hypothyroidism, unspecified; K21.9 Gastro-esophageal reflux disease without esophagitis; J44.9 Chronic obstructive pulmonary disease, unspecified; Z88.0 Allergy status to penicillin; Z88.1 Allergy status to other antibiotic agents; Z88.4 Allergy status to anesthetic agent; Z88.8 Allergy status to other drugs, medicaments and biological substances; Z79.890 Hormone replacement therapy; Z79.899 Other long term (current) drug therapy
CPT/HCPCS: 43239; 88305; G0121

== ENCOUNTER → 2024-10-20 | Outpatient (CLI) | payer MEDICARE ==
[2024-10-20 13:32] LABS: HEMATOCRIT 34.5 % (36.0-47.0); HEMOGLOBIN 11.7 g/dl (12.0-15.5); MEAN CORPUSCULAR HEMOGLOBIN 31.2 pg (27.0-33.0); MEAN CORPUSCULAR HGB CONC 33.9 g/dl (32.0-36.5); PLATELET COUNT, AUTOMATED 220 10^3/uL (150-450); RED BLOOD COUNT 3.75 10^6/uL (4.00-5.40); WHITE BLOOD COUNT 4.8 10^3/uL (4.0-10.0)
[2024-10-20 14:05] LABS: IRON (FE) 110 UG/DL (50-170); PERCENT SATURATION 34.7 % (13.2-45.0); TOTAL IRON BINDING CAPACITY 317 UG/DL (250-425)
[2024-10-20 14:06] LABS: ALKALINE PHOSPHATASE 104 U/L (35-104); ALT/SGPT 26 U/L (7.0-40); AST/SGOT 21 U/L (<34); BILIRUBIN,TOTAL 0.8 MG/DL (0.3-1.2); BLOOD UREA NITROGEN 19 MG/DL (9-23); CALCIUM LEVEL 9.5 MG/DL (8.3-10.6); CARBON DIOXIDE LEVEL 30 MMOL/L (20-31); CHLORIDE LEVEL 108 MMOL/L (98-107); CHOLESTEROL LEVEL 197 MG/DL (<200); CHOLESTEROL RISK RATIO 3.54 (<5); CREATININE FOR GFR 0.63 MG/DL (0.55-1.30); GLOMERULAR FILTRATION RATE > 60.0 (>45); GLUCOSE, FASTING 84 MG/DL (74-106); HDL CHOLESTEROL 55.6 MG/DL (>40); LDL CHOLESTEROL 128.8 MG/DL (<100); NON-HDL-C 141.4 MG/DL; POTASSIUM SERUM 4.1 MMOL/L (3.5-5.1); SODIUM LEVEL 144 MMOL/L (136-145); THYROXINE (T4) 9.8 UG/DL (4.5-10.9); TOTAL PROTEIN 7.1 G/DL (5.7-8.2); TRIGLYCERIDES LEVEL 63 MG/DL (<150)
[2024-10-20 14:07] LABS: THYROID STIMULATING HORMONE 1.112 uIU/ML (0.55-4.78)
[2024-10-20 14:10] LABS: TOTAL T3 87.5 NG/DL (60.0-181.0)
== END ==
LOC: M RAD 11:53
PROVIDERS: ATTEND Family Medicine
DX: J44.9 Chronic obstructive pulmonary disease, unspecified (principal); R53.83 Other fatigue; E03.9 Hypothyroidism, unspecified; Z79.899 Other long term (current) drug therapy

== ENCOUNTER → 2024-11-11 | Outpatient (CLI) | payer MEDICARE | LOC: M RAD 06:15 | PROVIDERS: ATTEND Family Medicine | DX: R10.11 Right upper quadrant pain (principal) ==

== ENCOUNTER → 2024-12-18 | Outpatient (CLI) | payer MEDICARE ==
[2024-12-18 07:10] LABS: HEMATOCRIT 33.6 % (36.0-47.0); HEMOGLOBIN 11.6 g/dl (12.0-15.5); MEAN CORPUSCULAR HEMOGLOBIN 31.6 pg (27.0-33.0); MEAN CORPUSCULAR HGB CONC 34.5 g/dl (32.0-36.5); MEAN CORPUSCULAR VOLUME 91.6 fl (80.0-96.0); PLATELET COUNT, AUTOMATED 229 10^3/uL (150-450); RED BLOOD COUNT 3.67 10^6/uL (4.00-5.40); WHITE BLOOD COUNT 3.9 10^3/uL (4.0-10.0)
[2024-12-18 07:39] LABS: AMYLASE 84 U/L (30-118)
[2024-12-18 07:40] LABS: ALBUMIN 3.7 G/DL (3.2-5.2); ALKALINE PHOSPHATASE 100 U/L (35-104); ALT/SGPT 33 U/L (7.0-40); AST/SGOT 25 U/L (<34); BILIRUBIN,TOTAL 0.6 MG/DL (0.3-1.2); BLOOD UREA NITROGEN 17 MG/DL (9-23); CALCIUM LEVEL 8.9 MG/DL (8.3-10.6); CARBON DIOXIDE LEVEL 29 MMOL/L (20-31); CHLORIDE LEVEL 109 MMOL/L (98-107); CREATININE FOR GFR 0.68 MG/DL (0.55-1.30); GLOMERULAR FILTRATION RATE > 60.0 (>45); GLUCOSE, FASTING 87 MG/DL (74-106); POTASSIUM SERUM 4.1 MMOL/L (3.5-5.1); SODIUM LEVEL 146 MMOL/L (136-145); TOTAL PROTEIN 6.9 G/DL (5.7-8.2)
[2024-12-18 07:43] LABS: THYROXINE (T4) 8.4 UG/DL (4.5-10.9)
[2024-12-18 07:44] LABS: THYROID STIMULATING HORMONE 2.385 uIU/ML (0.55-4.78)
[2024-12-18 07:45] LABS: TOTAL T3 101.9 NG/DL (60.0-181.0)
== END ==
LOC: M LAB 06:25
PROVIDERS: ATTEND Family Medicine
DX: E03.9 Hypothyroidism, unspecified (principal); I10 Essential (primary) hypertension; R10.9 Unspecified abdominal pain

== ENCOUNTER → 2024-12-23 | Outpatient (CLI) | payer MEDICARE ==
[~2024-12-23] MED LIST changes: +ISOVUE-370 76% 100ML VIAL ONE
== END ==
LOC: M PLAIMG 07:58
PROVIDERS: ATTEND Family Medicine
DX: R19.06 Epigastric swelling, mass or lump (principal); R10.11 Right upper quadrant pain; N28.1 Cyst of kidney, acquired
CPT/HCPCS: 74178; Q9967

== ENCOUNTER → 2025-02-23 | Outpatient (REF) | payer MEDICARE ==
[~2025-02-23] MED LIST changes: -ISOVUE-370 76% 100ML VIAL ONE
== END ==
LOC: M LAB REF 19:44
PROVIDERS: ATTEND Physician Assistant
DX: J06.9 Acute upper respiratory infection, unspecified (principal)

== ENCOUNTER → 2025-05-12 | Outpatient (CLI) | payer MEDICARE ==
[2025-05-12 09:36] LABS: ALT/SGPT 27.0 U/L (7.0-40); AST/SGOT 24.0 U/L (<34); CHOLESTEROL LEVEL 165.0 MG/DL (<200); CHOLESTEROL RISK RATIO 2.83 (<5); LDL CHOLESTEROL 96.7 MG/DL (<100); NON-HDL-C 106.9 MG/DL; TRIGLYCERIDES LEVEL 51.0 MG/DL (<150)
== END ==
LOC: M LAB 06:52
PROVIDERS: ATTEND Registered Nurse
DX: E78.00 Pure hypercholesterolemia, unspecified (principal)

== ENCOUNTER → 2025-06-08 | Outpatient (CLI) | payer MEDICARE | LOC: M CARPUL 08:48 | PROVIDERS: ATTEND Registered Nurse | DX: I34.0 Nonrheumatic mitral (valve) insufficiency (principal) ==

== ENCOUNTER → 2025-06-17 | Outpatient (REF) | payer MEDICARE | LOC: M LAB REF 14:15 | PROVIDERS: ATTEND Internal Medicine | DX: R10.11 Right upper quadrant pain (principal) ==

== ENCOUNTER → 2025-07-08 | Outpatient (CLI) | payer MEDICARE | LOC: M RAD 07:06 | PROVIDERS: ATTEND Internal Medicine | DX: R10.11 Right upper quadrant pain (principal); R11.0 Nausea ==